=== PATIENT | female | born 1985 | race Caucasian/White ===

== ENCOUNTER → 2021-05-23 | Outpatient (CLI) | payer BC ==
[~2021-05-23] MED LIST: FOLIC ACID 11 MG/TA1 PO; IRON325 MG PO; K-DUR20 MEQ PO; LASIX 20MG TABL20 MG PO; LEVAQUIN 5500 MG/TA1 PO; OXY IR5 MG PO; PREDNISONE20 MG PO; PRENATAL VITAMI1 TA3 PO; PROCARDIA XL 6060 MG PO; TOPROL XL100 MG PO; TRANDATE 200MG200 MG PO; ZANTAC 150MG T150 MG PO
== END ==
LOC: COL.RAD 12:01
DX: M25.561 Pain in right knee (principal); M53.3 Sacrococcygeal disorders, not elsewhere classified